=== PATIENT | male | born 1990 | race Caucasian/White ===

== ENCOUNTER 2020-01-31 11:10 | Emergency (ER) | payer OTHER, SELFPAY ==
[2020-01-31 11:17] VITALS: BP 131/82; PULSE 75; RESP 16; TEMP 36.5; O2SAT 100; BMI 21.9
[2020-01-31 11:51] LABS: Add Manual Diff / Slide Review NO; Basophils Absolute Auto 0 /uL (0-100); Basophils Percent Auto 0.5 % (0-2); Eosinophils Absolute Auto 100 /uL (0-450); Eosinophils Percent Auto 1.7 % (2-4); Hematocrit 40.3 % (41-53); Hemoglobin 13.9 g/dL (13.5-17.5); Lymphocytes Absolute Auto 2000 /uL (1100-4500); Lymphocytes Percent Auto 42.3 % (25-40); Mean Corpuscular HGB Conc 34.5 % (30-36); Mean Corpuscular Hemoglobin 29.6 PG (26-34); Mean Corpuscular Volume 85.6 fL (80-100); Monocytes Absolute Auto 300 /uL (0-900); Monocytes Percent Auto 7.2 % (3-14); Neutrophils Absolute Auto 2300 /uL (1500-7000); Neutrophils Percent Auto 48.3 % (50-75); Platelet Count 268 X10^3/uL (150-400); Red Cell Distribution Width 12.5 % (11.6-14.8); White Blood Cell Count 4.8 X10^3/uL (4.5-11.0)
[2020-01-31 11:52] VITALS: BP 133/89; PULSE 67; O2SAT 96
[2020-01-31 11:57] LABS: INR 1.1 (0.9-1.3); Prothrombin Time 12.5 SECONDS (10.1-12.7)
[2020-01-31 11:59] LABS: PTT Partial Thromboplastin Tim 34 SECONDS (26.4-36.2)
[2020-01-31 12:07] LABS: Alanine Aminotransferase 14 IU/L (<50); Albumin 4.7 g/dL (3.5-5.0); Albumin Globulin Ratio 1.5 (1.0-2.8); Alkaline Phosphatase 45 U/L (38-126); Aspartate Aminotransferase 20 IU/L (17-59); BUN Creatinine Ratio 14.3 (6-22); Bilirubin Total 0.7 mg/dL (0.2-1.3); Blood Urea Nitrogen 13 mg/dL (9-20); Calcium 9.7 mg/dL (8.4-10.2); Carbon Dioxide 34 mmol/L (22-32); Chloride 102 mmol/L (98-107); Estimated Glomerular Filt Rate > 60.0 mL/min (>60); Globulin 3.1 g/dL (1.7-4.1); Glucose 103 mg/dL (70-100); HEMOLYSIS < 15 (0-50); Lipase 58 U/L (23-300); Potassium 4.4 mmol/L (3.4-5.1); Sodium 141 mmol/L (137-145); Total Protein 7.8 g/dL (6.3-8.2)
--- NOTE | 2020-01-31 12:45 | DI.CT.S_ITS ---
PROCEDURE: CT ABDOMEN PELVIS W CON INDICATIONS: Right lower quadrant abdominal pain TECHNIQUE: After the administration of intravenous contrast, 5 mm thick sections acquired from the diaphragm to the symphysis. 5 mm coronal and sagittal reformats were acquired. For radiation dose reduction, the following was used: automated exposure control, adjustment of mA and/or kV according to patient size. COMPARISON: None. FINDINGS: Image quality: Excellent. ABDOMEN: Lung bases: Lung bases are clear. Heart size is normal. Solid organs: Liver is normal in size and enhancement. Gallbladder is unremarkable . Biliary system is non dilated. Pancreas enhances normally. Spleen is normal in size and enhancement. No adrenal nodules. Kidneys demonstrate normal size and enhancement, without hydronephrosis. Peritoneum and bowel: Bowel loops demonstrate normal wall thickness and caliber. No free fluid or air. The appendix is not identified. Moderately large fecal load. Multiple small right lower quadrant lymph nodes may represent mesenteric adenitis. Nodes and vessels: No retroperitoneal or mesenteric adenopathy by size criteria. Aorta and inferior vena cava are normal in size. Miscellaneous: No ventral hernias. PELVIS: Genitourinary: Bladder wall thickness is normal. Miscellaneous: No inguinal hernias or adenopathy. Bones: No suspicious bony lesions. No vertebral body compression fractures. IMPRESSION: 1. Appendix not identified. No secondary findings of acute appendicitis. 2. Question mesenteric adenitis. 3. Moderately large fecal load. Dictated by: Wade Cruz M.D. on 01/31/2020 at 12:27 Approved by: Wade Cruz M.D. on 01/31/2020 at 12:32
[2020-01-31 14:28] VITALS: PULSE 94; O2SAT 95
[2020-01-31 14:29] VITALS: BP 131/73; PULSE 77; O2SAT 100
[2020-01-31 14:30] VITALS: BP 131/73; PULSE 76; RESP 16; O2SAT 100
[2020-01-31] MEDS: KETOROLAC 60 MG/2 ML VIAL 30 MG IV (14:31)
--- NOTE | 2020-01-31 14:52 | ED.ABDPAIN ---
HPI - Abdominal Pain [facility] - Last Filed: 01/31/20 14:57> General Chief Complaint: Abdominal Pain Stated Complaint: right side abdominal pain Time Seen by Provider: 01/31/20 11:47 Source: patient Mode of arrival: Ambulatory Limitations: no limitations History of Present Illness HPI narrative: And the patient is a 29-year-old male nonsmoker with noncontributory medical history who presents with a chief complaint of right lower quadrant abdominal pain. This has been ongoing for about 4-6 weeks now. [place] work as well as ultrasound. He states nothing has been found yet, but they noted slight blood in his urine so they referred him to the emergency department for imaging as their imaging down is down. He denies any fevers nausea vomiting or diarrhea. Denies any stool changes. Denies any surgical abdominal history. Denies any testicular pain. He states that occasionally takes ibuprofen which helps a little bit. Related Data Previous Rx's Medication Instructions Recorded ketorolac 10 mg PO Q6H PRN #14 tab 01/31/20 Allergies Allergy/AdvReac Type Severity Reaction Status Date / Time No Known Drug Allergies Allergy Verified 01/31/20 11:17 Review of Systems <[facility] Last Filed: 01/31/20 14:57> Review of Systems Narrative: GENERAL: Denies chills, fatigue, malaise, fever, sweats. HEENT: Denies sinus pain, ear pain, sore throat, difficulty swallowing, dizziness. RESPIRATORY: Denies dyspnea, cough, wheezing, hemoptysis, sputum. CARDIOVASCULAR: Denies chest pain, palpitations, orthopnea, edema, GASTROINTESTINAL: See HPI : Denies dysuria, frequency, incontinence, hematuria, urinary retention. MUSCULOSKELETAL: denies weakness, joint pain, or bony pain SKIN: Denies rash, skin lesions, or other NEUROLOGIC: Denies weakness, headache, numbness, change in speech, confusion, seizures, incoordination. PSYCHIATRIC: No concerning psychosocial issues. 12 point review of systems is negative except for those stated above Patient History <[facility] - Last Filed: 01/31/20 14:57> Social History Smoking Status: Never smoker Smoking Status: Never smoker alcohol intake frequency: 0-2 drinks per day Substance Use Type: does not use Exam <CASA Barbosa-BC - Last Filed: 01/31/20 14:57> Narrative Exam Narrative: GENERAL: This is a well-nourished, well-developed patient, in no acute distress HEAD: Atraumatic. Normocephalic. No temporal or scalp tenderness. EYES: Pupils equal round and reactive. Extraocular motions intact. No scleral icterus. No injection or drainage. ENT: Nose without bleeding, purulent drainage or septal hematoma. Throat without erythema, tonsillar hypertrophy or exudate. Uvula midline. Airway patent. NECK: Trachea midline. No JVD or lymphadenopathy. Supple, nontender, no meningeal signs. CARDIOVASCULAR: Regular rate and rhythm RESPIRATORY: Clear to auscultation. Breath sounds equal bilaterally. No wheezes, rales, or rhonchi. No cough. No increased respiratory effort no accessory muscle use. GASTROINTESTINAL: Abdomen soft, pain to palpation right lower quadrant, no guarding noted., nondistended. No hepato-splenomegaly, or palpable masses. No guarding. Active bowel sounds all 4 quadrants. EXTREMITIES: No clubbing, cyanosis, or edema. No joint tenderness, effusion, or edema noted. BACK: Nontender without deformity or crepitance. No flank tenderness. NEURO: AOx3. SKIN: No rash or erythema on visible skin. Initial Vital Signs Initial Vital Signs: Vital Signs Temperature 97.7 F 01/31/20 11:17 Pulse Rate 75 01/31/20 11:17 Respiratory Rate 16 01/31/20 11:17 Blood Pressure 131/82 01/31/20 11:17 Pulse Oximetry 100 01/31/20 11:17 <Ofelia Bhatti DO - Last Filed: 02/01/20 07:33> Initial Vital Signs Initial Vital Signs: Vital Signs Temperature 97.7 F 01/31/20 11:17 Pulse Rate 75 01/31/20 11:17 Respiratory Rate 16 01/31/20 11:17 Blood Pressure 131/82 01/31/20 11:17 Pulse Oximetry 100 01/31/20 11:17 Scores <CASA Barbosa-BC - Last Filed: 01/31/20 14:57> GCS Herber coma scale eye opening: Spontaneous Roberts coma scale verbal response: Orientated Herber coma scale motor response: Obey commands Roberts coma scale total score: 15 Course <LOUIS Barbosa - Last Filed: 01/31/20 14:57> Orders Ordered: Discontinued Medications Ketorolac Tromethamine (Toradol) 30 mg IV NOW ONE Stop: 01/31/20 14:24 Last Admin: 01/31/20 14:31 Dose: 30 mg Documented by: ATIF Vital Signs Vital signs: Vital Signs - 8 hr 01/31/20 11:17 01/31/20 11:52 01/31/20 14:28 Temperature 97.7 F Pulse Rate 75 67 94 H Respiratory Rate 16 Blood Pressure 131/82 133/89 Pulse Oximetry 100 96 95 01/31/20 14:29 01/31/20 14:30 Temperature Pulse Rate 77 76 Respiratory Rate 16 Blood Pressure 131/73 131/73 Pulse Oximetry 100 100 <Ofelia Bhatti DO - Last Filed: 02/01/20 07:33> Orders Ordered: Discontinued Medications Ketorolac Tromethamine (Toradol) 30 mg IV NOW ONE Stop: 01/31/20 14:24 Last Admin: 01/31/20 14:31 Dose: 30 mg Documented by: ATIF Vital Signs Vital signs: Vital Signs - 8 hr 01/31/20 11:17 01/31/20 11:52 01/31/20 14:28 Temperature 97.7 F Pulse Rate 75 67 94 H Respiratory Rate 16 Blood Pressure 131/82 133/89 Pulse Oximetry 100 96 95 01/31/20 14:29 01/31/20 14:30 Temperature Pulse Rate 77 76 Respiratory Rate 16 Blood Pressure 131/73 131/73 Pulse Oximetry 100 100 MDM - Abdominal Pain <LOUIS Barbosa - Last Filed: 01/31/20 14:57> Differential Diagnosis Differential diagnosis: Likely abdominal pain, acute appendicitis, calculus of kidney, constipation and diverticulitis Lab Data Result diagrams: 01/31/20 11:40 01/31/20 11:40 Labs: Lab Results 01/31/20 01/31/20 01/31/20 Range/Units 11:40 11:40 11:40 WBC 4.8 (4.5-11.0) X10^3/uL RBC 4.70 (4.5-5.9) X10^6/uL Hgb 13.9 (13.5-17.5) g/dL Hct 40.3 L (41-53) % MCV 85.6 (80-100) fL MCH 29.6 (26-34) PG MCHC 34.5 (30-36) % RDW 12.5 (11.6-14.8) % Plt Count 268 (150-400) X10^3/uL Neut % (Auto) 48.3 L (50-75) % Lymph % (Auto) 42.3 H (25-40) % [place] % (Auto) 7.2 (3-14) % Eos % (Auto) 1.7 L (2-4) % Baso % (Auto) 0.5 (0-2) % Neut # (Auto) 2300 (5409-2036) /uL Lymph # (Auto) 2000 (9813-8026) /uL [place] # (Auto) 300 (0-900) /uL Eos # (Auto) 100 (0-450) /uL Baso # (Auto) 0 (0-100) /uL PT 12.5 (10.1-12.7) SECONDS INR 1.1 (0.9-1.3) APTT 34 (26.4-36.2) SECONDS Sodium 141 (137-145) mmol/L Potassium 4.4 (3.4-5.1) mmol/L Chloride 102 (98-107) mmol/L Carbon Dioxide 34 H (22-32) mmol/L BUN 13 (9-20) mg/dL Creatinine 0.91 (0.66-1.25) mg/dL Estimated GFR > 60.0 (>60) mL/min BUN/Creatinine Ratio 14.3 (6-22) Glucose 103 H (70-100) mg/dL Calcium 9.7 (8.4-10.2) mg/dL Total Bilirubin 0.7 (0.2-1.3) mg/dL AST 20 (17-59) IU/L ALT 14 (<50) IU/L Alkaline Phosphatase 45 (38-126) U/L Total Protein 7.8 (6.3-8.2) g/dL Albumin 4.7 (3.5-5.0) g/dL Globulin 3.1 (1.7-4.1) g/dL Albumin/Globulin Ratio 1.5 (1.0-2.8) Lipase 58 (23-300) U/L Point of care testing: Urine Dip Bedside Urine Glucose 100 mg/dl Bedside Urine Bilirubin - Negative Bedside Urine Ketone - Negative Urine Specific [place] 1.020 Bedside Urine Occult Blood - Negative Bedside Urine pH 6.5 Bedside Urine Protein - Negative Bedside Urine Urobilinogen +/- 1mg Bedside Urine Nitrite - Negative Bedside Urine Leukocytes - Negative Esterase Imaging Data CT scan - abdomen/pelvis: Radiologist's Impression: [address] [place] [id number] Scan Report Signed Patient: Jero Marc TMR#: [id number] : 1990Acct:[id number] Age/Sex: 29 / MDate of Service: 01/31/20 Loc: ED Accession Number: [id number] Procedure: CT abdomen pelvis w con Ordering Provider: Nadia Reynolds [employer]USTRI[employer] ENGINEERING TECHNICIAN- PROCEDURE: CT ABDOMEN PELVIS W CON INDICATIONS: Right lower quadrant abdominal pain TECHNIQUE: After the administration of intravenous contrast, 5 mm thick sections acquired from the diaphragm to the symphysis. 5 mm coronal and sagittal reformats were acquired. For radiation dose reduction, the following was used: automated exposure control, adjustment of mA and/or kV according to patient size. COMPARISON: None. FINDINGS: Image quality: Excellent. ABDOMEN: Lung bases: Lung bases are clear. Heart size is normal. Solid organs: Liver is normal in size and enhancement. Gallbladder is unremarkable . Biliary system is non dilated. Pancreas enhances normally. Spleen is normal in size and enhancement. No adrenal nodules. Kidneys demonstrate normal size and enhancement, without hydronephrosis. Peritoneum and bowel: Bowel loops demonstrate normal wall thickness and caliber. No free fluid or air. The appendix is not identified. Moderately large fecal load. Multiple small right lower quadrant lymph nodes may represent mesenteric adenitis. Nodes and vessels: No retroperitoneal or mesenteric adenopathy by size criteria. Aorta and inferior vena cava are normal in size. Miscellaneous: No ventral hernias. PELVIS: Genitourinary: Bladder wall thickness is normal. Miscellaneous: No inguinal hernias or adenopathy. Bones: No suspicious bony lesions. No vertebral body compression fractures. IMPRESSION: 1. Appendix not identified. No secondary findings of acute appendicitis. 2. Question mesenteric adenitis. 3. Moderately large fecal load. Dictated by: Wade Cruz M.D. on 01/31/2020 at 12:27 Approved by: Wade Cruz M.D. on 01/31/2020 at 12:32 [facility] Narrative Medical decision making narrative: The patient is a 29-year-old male who presents with a chief complaint of right lower quadrant pain ongoing for about a month to 6 weeks. He states his primary care provider, has done lab work, urinalysis and found blood in his urine. Also noted to have a negative ultrasound. On evaluation, the patient does not have acute abdomen. Lab work is grossly normal with no acute findings. I did obtain a CT abdomen pelvis given his prolonged pain, which shows possible mesenteric adenitis. I discussed at length that this is usually self-limiting condition, prescribed Toradol as he states NSAIDs of helped him in the past. Also noted constipation. Encouraged follow-up with primary care provider in the next 48-72 hours as well as return precautions to the emergency department including abdominal pain with fever, inability keep down fluids etcetera. Patient has no questions or concerns upon discharge and states understanding return precautions as well as follow-up care. <Ofelia Bhatti, DO - Last Filed: 02/01/20 07:33> Lab Data Labs: Lab Results 01/31/20 01/31/20 01/31/20 Range/Units 11:40 11:40 11:40 WBC 4.8 (4.5-11.0) X10^3/uL RBC 4.70 (4.5-5.9) X10^6/uL Hgb 13.9 (13.5-17.5) g/dL Hct 40.3 L (41-53) % MCV 85.6 (80-100) fL MCH 29.6 (26-34) PG MCHC 34.5 (30-36) % RDW 12.5 (11.6-14.8) % Plt Count 268 (150-400) X10^3/uL Neut % (Auto) 48.3 L (50-75) % Lymph % (Auto) 42.3 H (25-40) % [place] % (Auto) 7.2 (3-14) % Eos % (Auto) 1.7 L (2-4) % Baso % (Auto) 0.5 (0-2) % Neut # (Auto) 2300 (6308-3822) /uL Lymph # (Auto) 2000 (7896-4729) /uL [place] # (Auto) 300 (0-900) /uL Eos # (Auto) 100 (0-450) /uL Baso # (Auto) 0 (0-100) /uL PT 12.5 (10.1-12.7) SECONDS INR 1.1 (0.9-1.3) APTT 34 (26.4-36.2) SECONDS Sodium 141 (137-145) mmol/L Potassium 4.4 (3.4-5.1) mmol/L Chloride 102 (98-107) mmol/L Carbon Dioxide 34 H (22-32) mmol/L BUN 13 (9-20) mg/dL Creatinine 0.91 (0.66-1.25) mg/dL Estimated GFR > 60.0 (>60) mL/min BUN/Creatinine Ratio 14.3 (6-22) Glucose 103 H (70-100) mg/dL Calcium 9.7 (8.4-10.2) mg/dL Total Bilirubin 0.7 (0.2-1.3) mg/dL AST 20 (17-59) IU/L ALT 14 (<50) IU/L Alkaline Phosphatase 45 (38-126) U/L Total Protein 7.8 (6.3-8.2) g/dL Albumin 4.7 (3.5-5.0) g/dL Globulin 3.1 (1.7-4.1) g/dL Albumin/Globulin Ratio 1.5 (1.0-2.8) Lipase 58 (23-300) U/L Point of care testing: Urine Dip Bedside Urine Glucose 100 mg/dl Bedside Urine Bilirubin - Negative Bedside Urine Ketone - Negative Urine Specific [place] 1.020 Bedside Urine Occult Blood - Negative Bedside Urine pH 6.5 Bedside Urine Protein - Negative Bedside Urine Urobilinogen +/- 1mg Bedside Urine Nitrite - Negative Bedside Urine Leukocytes - Negative Esterase Discharge Plan Departure Patient Disposition: Home Clinical Impression: Mesenteric adenitis Abdominal pain Qualifiers: Abdominal location: right lower quadrant Qualified Code(s): R10.31 - Right lower quadrant pain Constipation Qualifiers: Constipation type: unspecified constipation type Qualified Code(s): K59.00 - Constipation, unspecified Discharge Date/Time: 01/31/20 14:57 Instructions: DI for Abdominal Pain-Adult, DI for Mesenteric Adenitis-Adult Activity Restrictions/Additional Instructions: Thank you for trusting us with your care today. As discussed, your CT shows suspicion of mesenteric adenitis. This is inflammation of the lymph nodes in that area. It also shows some constipation. I have included discharge instructions regarding constipation as well as mesenteric adenitis. As discussed, please follow-up with primary care provider in the next few days. I sent a prescription of ketorolac or Toradol to the and [facility] I have given you a prescription of Toradol. This is an NSAID. Do not combine it with other NSAIDs such as Aleve or ibuprofen. I suggest taking it with some food, as it can irritate your stomach. Please come back to the emergency department for any acute concerns such as inability keep down fluids, abdominal pain with fever etcetera Please follow-up with primary care provider in the next 48-72 hours. Please come back to the ER for any acute concerns. Prescriptions: New ketorolac 10 mg tablet 10 mg PO Q6H PRN (Reason: pain) Qty: 14 RF: 0 Referrals: Celia Barraza MD [Non-Staff] - <Ofelia Bhatti DO - Last Filed: 02/01/20 07:33> Cosign ED Attending Pardeepature Attestation: I was immediately available in the department for consultation. Documentation has been reviewed. I agree with assessment and plan.
== END 2020-01-31 14:57 | disposition home or self-care (01) ==
PROVIDERS: Emergency Medicine; Emergency Provider Nurse Practitioner Family
DX: I88.0 Nonspecific mesenteric lymphadenitis (principal); R10.31 Right lower quadrant pain; K59.00 Constipation, unspecified
CPT/HCPCS: 36415; 74177; 80053; 81003; 83690; 85025; 85610; 85730; 93005; 93010; 96374; 99284; J1885